=== PATIENT | female | born 1945 | race Caucasian/White ===

== ENCOUNTER 2017-02-04 15:58 | Inpatient (IN) | payer OTHER, MEDICARE ==
[2017-02-04] VITALS (8 sets, daily range): BP systolic 69–171; BP diastolic 55–78; PULSE 64–72; RESP 18–22; TEMP 97.8–98; O2SAT 96–99
[~2017-02-04 15:58] MED LIST: ALPR2TAB3 PO; BENI40TA30 PO; BYST2.5T2 PO; DILT120C9 PO; DILTSR120 PO; LAMO25TA PO; LASI20TA PO; LEVO125T3 PO; LEXA20TA PO; MAXZ PO; MORP15IN3 INTRA1; NEUR100C PO; NORT10CA PO; NORT75CA PO; OMEP20TA39 PO; POTA-267 PO; PROM25TA5 PO; PYRI50TA PO; [UNRECOGNIZED DRUG - CODE] IV; [UNRECOGNIZED DRUG - CODE] IV
[2017-02-04] MEDS ORDERED: ESCI20TA PO (16:18)
[2017-02-04] MEDS ORDERED: TRIA1TAB5 PO (16:18)
[2017-02-04] MEDS ORDERED: FURO20TA PO (16:18)
[2017-02-04] MEDS ORDERED: DILA2TAB2 PO (16:18)
[2017-02-04] MEDS ORDERED: ALPR0.5T3 PO (16:18)
[2017-02-04] MEDS ORDERED: NORT75CA PO (16:18)
[2017-02-04] MEDS ORDERED: TIZA4TAB PO (16:18)
[2017-02-04] MEDS ORDERED: GABA800T PO (16:18)
[2017-02-04] MEDS ORDERED: LAMO25TA PO (16:18)
[2017-02-04] MEDS ORDERED: OMEP20TA PO (16:18)
[2017-02-04] MEDS ORDERED: METO25TA3 PO (16:18)
[2017-02-04] MEDS ORDERED: DILT120C9 PO (16:18)
[2017-02-04] MEDS ORDERED: PERC10TA27 PO (16:18)
[2017-02-04] MEDS ORDERED: LEVO112T2 PO (16:18)
[2017-02-04] MEDS ORDERED: POTA10CA PO (16:18)
[2017-02-04 16:28] LABS: AUTOMATED NEUTROPHIL # 6.6 TH/MM3 (1.8-7.7); BASOPHIL % 0.5 % (0.0-2.0); EOSINOPHIL # 0.1 TH/MM3 (0-0.4); EOSINOPHIL % 0.7 % (0.0-4.0); HEMATOCRIT 40.9 % (35.0-46.0); LYMPH % 20.6 % (9.0-44.0); LYMPHOCYTE # 1.9 TH/MM3 (1.0-4.8); MEAN CELL VOLUME 71.5 FL (80.0-100.0); MEAN CORPUSCULAR HEMOGLOBIN 22.3 PG (27.0-34.0); MEAN CORPUSCULAR HGB CONC 31.2 % (32.0-36.0); MONO % 8.1 % (0.0-8.0); NEUT % 70.1 % (16.0-70.0); PLATELET COUNT 219 TH/MM3 (150-450); RED BLOOD COUNT 5.71 MIL/MM3 (4.00-5.30); RED CELL DISTRIBUTION WIDTH 16.6 % (11.6-17.2); WHITE BLOOD COUNT 9.4 TH/MM3 (4.0-11.0)
[2017-02-04 16:32] LABS: HEMO FLAGS AUTO DIFF
--- NOTE | 2017-02-04 16:49 | RADHPO ---
EXAM DATE/TIME: 02/04/2017 16:33 [place] COMPARISON: CT ABDOMEN & PELVIS W CONTRAST, February 28, 2014, 14:26. CHEST SINGLE AP, February 28, 2014, 13:15. INDICATIONS : Chest discomfort, irregular heart rate starting today MEDICAL HISTORY : None. SURGICAL HISTORY : None. ENCOUNTER: Initial ACUITY: 1 day PAIN SCORE: 0/10 LOCATION: Bilateral chest FINDINGS: There is slight scarring or atelectasis at the lateral left base which appears similar to prior. Lung s otherwise clear. No effusion suspected. Cardiomediastinal contours are stable and satisfactory for technique and projection. CONCLUSION: Minimal parenchymal opacity at the lateral left lung base. Dany Leyva MD on February 04, 2017 at 16:47 Board Certified Radiologist. This report was verified electronically.
[2017-02-04 16:53] LABS: ALKALINE PHOSPHATASE 171 U/L (45-117); ALT (GPT) 35 U/L (10-53); ANION GAP 14 MEQ/L (5-15); AST (GOT) 30 U/L (15-37); BICARBONATE 31.2 MEQ/L (21.0-32.0); BLOOD UREA NITROGEN 22 MG/DL (7-18); CHLORIDE 90 MEQ/L (98-107); CREATINE KINASE 236 U/L (26-192); GLOMERULAR FILTRATION RATE 49 ML/MIN (>89); MAGNESIUM 2.4 MG/DL (1.5-2.5); SODIUM (NA) 135 MEQ/L (136-145); TOTAL BILIRUBIN ADULT 0.5 MG/DL (0.2-1.0)
[2017-02-04 16:55] LABS: POTASSIUM 2.3 MEQ/L (3.5-5.1)
[2017-02-04] MEDS ORDERED: POTASSIUM CHLORIDE 25 MEQ EFFERVESCENT TAB PO ONE (17:00)
[2017-02-04 17:05] LABS: OVALOCYTES 1+ (NORMAL); SCAN/DIFF AUTO DIFF CONFIRMED
[2017-02-04 17:14] LABS: CKMB 2.6 NG/ML (0.5-3.6)
[2017-02-04] MEDS ORDERED: POTASSIUM CHLOR 10 MEQ PREMIX 100 ML IV ONE (17:15)
[2017-02-04] MEDS ORDERED: POTASSIUM PHOSPHATE MONOBASIC 500 MG TAB PO ONE (17:15)
--- NOTE | 2017-02-04 17:22 | PD ---
HPI Chief Complaint: Respiratory Symptoms Time Seen by Provider: 16:09 Travel History International Travel<30 days: No Contact w/Intl Traveler<30days: No Traveled to known affect area: No History of Present Illness HPI 71-year-old female presents with palpitations, general ill feeling, and diarrhea over the past couple of days. She states that she is concerned that she is withdrawing from her narcotics that she's been trying to cut her Percocet back. She states that she went to her cotton machine operator Dr. mckeon and he did echocardiogram that showed no significant findings other than what he follows her with with her mitral prolapse. She states she went to her pain management doctor today and they told her she could take a Percocet to see if that helped her but to come here if her symptoms were worse. She states that she's had this off and on for the past couple days and it is getting worse where she feels like she is about to pass out. Quality is palpitations. Severity is feeling like they are getting worse per patient. She denies specific modifying factors other than movement. PFSH Past Medical History Arthritis: Yes Asthma: No Autoimmune Disease: No Anxiety: No Depression: Yes (bipolar) Heart Rhythm Problems: No Cancer: No Cardiovascular Problems: Yes (MVP) High Cholesterol: Yes Chest Pain: No Congestive Heart Failure: No COPD: No Cerebrovascular Accident: No Diabetes: Yes (TYPE 2 diet controlled) Patient Takes Glucophage: No Diminished Hearing: No Endocrine: No Gastrointestinal Disorders: Yes GERD: No Genitourinary: No Headaches: No Hepatitis: No Hiatal Hernia: Yes (REPAIRED WITH SURGERY) Hypertension: Yes Immune Disorder: No Implanted Vascular Access Dvce: No Kidney Stones: No Medical other: Yes (arthritis back and neck problems) Musculoskeletal: Yes Neurologic: No Psychiatric: Yes (BIPOLAR DISORDER) Reproductive: No Respiratory: No Immunizations Current: Yes Migraines: No Renal Failure: No Seizures: No Sleep Apnea: Yes (SLIGHT) Thyroid Disease: Yes (hypo) Ulcer: No PNEUMOCCOCAL Vaccine (Year): 1 Menopausal: Yes Past Surgical History Abdominal Surgery: Yes (GASTRIC BANDING, EXP LAP, REPAIR HIATAL HERNIA) Appendectomy: Yes Cardiac Surgery: No Cholecystectomy: Yes Ear Surgery: No Endocrine Surgery: No Eye Surgery: No Genitourinary Surgery: No Gynecologic Surgery: Yes (HYSTERECTOMY) Hysterectomy: Yes (COMPLETE) Oral Surgery: No Thoracic Surgery: No Other Surgery: Yes (INTRATHECIAL PAIN PUMP TO RT ABD AREA) Social History Alcohol Use: No Tobacco Use: No (QUIT 30+YRS AGO SMOKED CIGS FOR 2 YRS ) Substance Use: No Allergies-Medications (Allergen,Severity, Reaction): Coded Allergies: Codeine (Verified Allergy, Severe, Psychosis, 02/04/17) Erythromycin (Verified Allergy, Severe, VOMITING/RASH, 02/04/17) Sulfa (Verified Allergy, Severe, 02/04/17) n/v Morphine (Verified Allergy, Intermediate, RASH, 02/04/17) PT STATES DOES NOT HAVE AN ALLERGY TO MORPHINE, HAS TAKEN BEFORE, "MAKES HER ITCH", BUT HAS HAD MULTIPLE TIMES BEFORE WITH NO ALLERGY Reported Meds & Prescriptions Reported Meds & Active Scripts Active Reported Percocet (Oxycodone-Acetaminophen) 10-325 mg Tab 1 Tab PO Q4H PRN Dilaudid (Hydromorphone HCl) 2 Mg Tab Unknown Dose PO Q4H PRN Tizanidine (Tizanidine HCl) 4 Mg Tab 4 Mg PO HS Alprazolam 0.5 Mg Tab 0.5 Mg PO HS Lamotrigine 25 Mg Tab 50 Mg PO DAILY Escitalopram (Escitalopram Oxalate) 20 Mg Tab 20 Mg PO DAILY Nortriptyline (Nortriptyline HCl) 75 Mg Cap 160 Mg PO HS Diltiazem ER 12 HR (Diltiazem HCl) 120 Mg Caper 120 Mg PO BID Omeprazole 20 Mg Tab 20 Mg PO DAILY Potassium Chloride ER (Potassium Chloride) 10 Meq Cap 10 Meq PO DAILY Levothyroxine (Levothyroxine Sodium) 112 Mcg Tab 112 Mcg PO DAILY Gabapentin 800 Mg Tab 800 Mg PO BID Triamterene-Hydrochlorothiazide 75-50 Mg Tab 1 Tab PO DAILY Metoprolol Tartrate 25 Mg Tab 25 Mg PO BID Furosemide 20 Mg Tab 20 Mg PO DAILY Review of Systems Except as stated in HPI: all other systems reviewed are Neg Physical Exam Narrative GENERAL: Well-nourished, well-developed patient. SKIN: Warm and dry. HEAD: Normocephalic and atraumatic. EYES: No injection or drainage. ENT: No nasal drainage noted. NECK: Supple, trachea midline. CARDIOVASCULAR: Regular rate and rhythm RESPIRATORY: Breath sounds equal bilaterally at apices. No accessory muscle use. GASTROINTESTINAL: Abdomen soft, non-tender, nondistended. NEUROLOGICAL: Awake and alert. Moves all extremities. Normal speech. Data Data Last Documented VS Vital Signs Date Time Temp Pulse Resp B/P Pulse Ox O2 Delivery O2 Flow Rate FiO2 02/04/17 17:14 66 18 171/72 97 Room Air 02/04/17 16:46 97.8 Orders Magnesium (Mg) (02/04/17 16:10) Phosphorus (Po4) (02/04/17 16:10) Complete Blood Count With Diff (02/04/17 16:10) Comprehensive Metabolic Panel (02/04/17 16:10) Ckmb (Isoenzyme) Profile (02/04/17 16:10) Troponin I (02/04/17 16:10) B-Type Natriuretic Peptide (02/04/17 16:10) Chest, Single Ap (02/04/17 ) Electrocardiogram (02/04/17 ) Iv Access Insert/Monitor (02/04/17 16:10) Ecg Monitoring (02/04/17 16:10) Oximetry (02/04/17 16:10) CKMB (02/04/17 16:19) CKMB% (02/04/17 16:19) Potassium Chloride Eff (K-Lyte Cl Eff) (02/04/17 17:00) Potassium Phosphate (K-Phos) (02/04/17 17:15) Potassium Chlor 10 Meq Premix (Kcl 10 Me (02/04/17 17:15) Admit Order (Ed Use Only) (02/04/17 17:29) Labs Laboratory Tests Test 02/04/17 16:19 White Blood Count 9.4 TH/MM3 Red Blood Count 5.71 MIL/MM3 Hemoglobin 12.7 GM/DL Hematocrit 40.9 % Mean Corpuscular Volume 71.5 FL Mean Corpuscular Hemoglobin 22.3 PG Mean Corpuscular Hemoglobin 31.2 % Concent Red Cell Distribution Width 16.6 % Platelet Count 219 TH/MM3 Mean Platelet Volume 9.6 FL Neutrophils (%) (Auto) 70.1 % Lymphocytes (%) (Auto) 20.6 % Monocytes (%) (Auto) 8.1 % Eosinophils (%) (Auto) 0.7 % Basophils (%) (Auto) 0.5 % Neutrophils # (Auto) 6.6 TH/MM3 Lymphocytes # (Auto) 1.9 TH/MM3 Monocytes # (Auto) 0.8 TH/MM3 Eosinophils # (Auto) 0.1 TH/MM3 Basophils # (Auto) 0.0 TH/MM3 CBC Comment AUTO DIFF Differential Comment AUTO DIFF CONFIRMED Ovalocytes 1+ Sodium Level 135 MEQ/L Potassium Level 2.3 MEQ/L Chloride Level 90 MEQ/L Carbon Dioxide Level 31.2 MEQ/L Anion Gap 14 MEQ/L Blood Urea Nitrogen 22 MG/DL Creatinine 1.10 MG/DL Estimat Glomerular Filtration 49 ML/MIN Rate Random Glucose 114 MG/DL Calcium Level 9.6 MG/DL Phosphorus Level 1.5 MG/DL Magnesium Level 2.4 MG/DL Total Bilirubin 0.5 MG/DL Aspartate Amino Transf 30 U/L (AST/SGOT) Alanine Aminotransferase 35 U/L (ALT/SGPT) Alkaline Phosphatase 171 U/L Total Creatine Kinase 236 U/L Creatine Kinase MB 2.6 NG/ML Creatine Kinase MB % 1.1 % Troponin I LESS THAN 0.02 NG/ML B-Type Natriuretic Peptide 40 PG/ML Total Protein 8.6 GM/DL Albumin 4.2 GM/DL MDM Medical Decision Making Medical Screen Exam Complete: Yes Emergency Medical Condition: Yes Medical Record Reviewed: Yes (past history confirmed) Interpretation(s) EKG shows sinus rhythm at 70 with bigeminy PVCs last from 2010 CBC & BMP Diagram 02/04/17 16:19 Last 24 hours Impressions Chest X-Ray 02/04/17 0000 Signed Impressions: Service Date/Time: Saturday, February 04, 2017 16:33 - CONCLUSION: Minimal parenchymal opacity at the lateral left lung base. Dany Leyva MD Chest x-ray is stable Phosphorus is low Differential Diagnosis Electrolyte abnormality, anemia, medication effect, renal failure, CHF Narrative Course Will check blood work, chest x-ray, EKG and reevaluate. Patient has bigeminy but vitals are stable this is likely electrolyte related Chemistries confirm low potassium and phosphorus. These are both been replaced. Patient no longer is in bigeminy. She'll need to be admitted to the hospital for further care. Patient updated and agrees to plan of care. Physician Communication Physician Communication dr martinez requests call to dr mckeon to make sure can stay here in [place] dr martinez states can stay here with consult to his cotton machine operator in the am Diagnosis Primary Impression: Hypokalemia Additional Impressions: Bigeminy Hypophosphatemia Admitting Information Admitting Physician Requests: Admit Karina Kendall MD Feb 04, 2017 17:22
[2017-02-04] MEDS ORDERED: SODIUM CHLORID 0.9% 500 ML INJ 500 ML IV ONE (18:00)
[2017-02-04] MEDS ORDERED: oxyCODONE/ACETAMINOPHEN 10 MG/325 MG TAB PO PRN (18:15)
[2017-02-04] MEDS ORDERED: POTASSIUM PHOSPHATE INJ 30 MMOL in SODIUM CHLOR 0.9% 250 ML INJ 250 ML IV ONE (18:15)
--- NOTE | 2017-02-04 18:20 | HHI.HP ---
[facility] Primary [facility] Physician Taylor Navarrete MD Admission Diagnosis hypokalemia, bigemeny Diagnoses: Chief Complaint: Palpitation, lightheaded, weakness, diarrhea Travel History International Travel<30 Days: No Contact w/Intl Traveler <30 Da: No Traveled to Known Affected Are: No History of Present Illness 71 years old female who has a history of hypertension hyperlipidemia bipolar disorder, type 2 diabetes mellitus, history of right hip replacement complicated with infection, patient has narcotic pumps that has been gradually weaned of also she is on Percocet that she said she was trying to wean it off as well. Came to the ER complaining of fatigue and weakness, and palpitation that she's been feeling for a while, patient was at Dr. Pritchett her kettle tender 2 days ago for that problem and she had 2-D echo, today her symptoms got worse patient thought due to her tapering her Percocet dose so she took extra Percocet 10 mg but without improvement, in ED she was found to have potassium of 2.3, and phosphorus of 1.5 and she was in bigeminy on telemetry. She denied chest pain, abdominal pain, but the patient admitted having 3 days of diarrhea which she admitted also being due to excessive MiraLAX she's been taking. Review of Systems All 10 systems reviewed and was positive for what is mentioned in history of present illness otherwise negative Past Family Social History Past Medical History Arthritis: Yes Asthma: No Autoimmune Disease: No Anxiety: No Depression: Yes (bipolar) Heart Rhythm Problems: No Cancer: No Cardiovascular Problems: Yes (MVP) High Cholesterol: Yes Chest Pain: No Congestive Heart Failure: No COPD: No Cerebrovascular Accident: No Diabetes: Yes (TYPE 2 diet controlled) Patient Takes Glucophage: No Diminished Hearing: No Endocrine: No Gastrointestinal Disorders: Yes GERD: No Genitourinary: No Headaches: No Hepatitis: No Hiatal Hernia: Yes (REPAIRED WITH SURGERY) Hypertension: Yes Immune Disorder: No Implanted Vascular Access Dvce: No Kidney Stones: No Medical other: Yes (arthritis back and neck problems) Musculoskeletal: Yes Neurologic: No Psychiatric: Yes (BIPOLAR DISORDER) Reproductive: No Respiratory: No Immunizations Current: Yes Migraines: No Renal Failure: No Seizures: No Sleep Apnea: Yes (SLIGHT) Thyroid Disease: Yes (hypo) Menopausal: Yes Past Surgical History Abdominal Surgery: Yes (GASTRIC BANDING, EXP LAP, REPAIR HIATAL HERNIA) Appendectomy: Yes Cardiac Surgery: No Cholecystectomy: Yes Ear Surgery: No Endocrine Surgery: No Eye Surgery: No Genitourinary Surgery: No Gynecologic Surgery: Yes (HYSTERECTOMY) Hysterectomy: Yes (COMPLETE) Oral Surgery: No Thoracic Surgery: No Other Surgery: Yes (INTRATHECIAL PAIN PUMP TO RT ABD AREA) Allergies: Coded Allergies: Codeine (Verified Allergy, Severe, Psychosis, 02/04/17) Erythromycin (Verified Allergy, Severe, VOMITING/RASH, 02/04/17) Sulfa (Verified Allergy, Severe, 02/04/17) n/v Morphine (Verified Allergy, Intermediate, RASH, 02/04/17) PT STATES DOES NOT HAVE AN ALLERGY TO MORPHINE, HAS TAKEN BEFORE, "MAKES HER ITCH", BUT HAS HAD MULTIPLE TIMES BEFORE WITH NO ALLERGY Family History Father of heart attack at age 85 Social History Quit smoking 30 years ago before that she smoked cigar, no alcohol or illicit drug abuse Physical Exam Vital Signs Vital Signs Date Time Temp Pulse Resp B/P Pulse Ox O2 Delivery O2 Flow Rate FiO2 02/04/17 17:14 66 18 171/72 97 Room Air 02/04/17 16:46 97.8 64 18 140/78 98 Room Air 02/04/17 16:17 99 Room Air 02/04/17 16:14 66 18 167/68 99 Room Air 02/04/17 16:08 98.0 72 22 69/55 98 Physical Exam GENERAL: This is a well-nourished, well-developed patient, in no apparent distress. SKIN: No rashes, warm and dry HEAD: Atraumatic. Normocephalic. EYES: Pupils equal round and reactive. Extraocular motions intact. No scleral icterus. ENT: Nose without bleeding, or drainage, Airway patent. NECK: Trachea midline. Supple CARDIOVASCULAR: Regular rate and rhythm with positive3/6 systolic murmur RESPIRATORY: Fair air entry bilaterally. No wheezes, rales, or rhonchi. GASTROINTESTINAL: Abdomen soft, non-tender, nondistended. Positive bowel sounds MUSCULOSKELETAL: Extremities without clubbing, cyanosis, or edema. Pedal pulses appreciated NEUROLOGICAL: Awake and alert. Moves all extremity. Normal speech.no focal neurological deficit Laboratory Laboratory Tests Test 02/04/17 16:19 White Blood Count 9.4 Red Blood Count 5.71 Hemoglobin 12.7 Hematocrit 40.9 Mean Corpuscular Volume 71.5 Mean Corpuscular Hemoglobin 22.3 Mean Corpuscular Hemoglobin 31.2 Concent Red Cell Distribution Width 16.6 Platelet Count 219 Mean Platelet Volume 9.6 Neutrophils (%) (Auto) 70.1 Lymphocytes (%) (Auto) 20.6 Monocytes (%) (Auto) 8.1 Eosinophils (%) (Auto) 0.7 Basophils (%) (Auto) 0.5 Neutrophils # (Auto) 6.6 Lymphocytes # (Auto) 1.9 Monocytes # (Auto) 0.8 Eosinophils # (Auto) 0.1 Basophils # (Auto) 0.0 CBC Comment AUTO DIFF Differential Comment AUTO DIFF CONFIRMED Ovalocytes 1+ Sodium Level 135 Potassium Level 2.3 Chloride Level 90 Carbon Dioxide Level 31.2 Anion Gap 14 Blood Urea Nitrogen 22 Creatinine 1.10 Estimat Glomerular Filtration 49 Rate Random Glucose 114 Calcium Level 9.6 Phosphorus Level 1.5 Magnesium Level 2.4 Total Bilirubin 0.5 Aspartate Amino Transf 30 (AST/SGOT) Alanine Aminotransferase 35 (ALT/SGPT) Alkaline Phosphatase 171 Total Creatine Kinase 236 Creatine Kinase MB 2.6 Creatine Kinase MB % 1.1 Troponin I LESS THAN 0.02 B-Type Natriuretic Peptide 40 Total Protein 8.6 Albumin 4.2 Result Diagram: 02/04/17 1619 02/04/17 1619 Imaging Last Impressions Chest X-Ray 02/04/17 0000 Signed Impressions: Service Date/Time: Saturday, February 04, 2017 16:33 - CONCLUSION: Minimal parenchymal opacity at the lateral left lung base. Dany Leyva MD Assessment and Plan Assessment and Plan 71 years old female came with palpitation lightheaded and weakness Severe hypokalemia mostly due to laxative -induced diarrhea Bigeminy mostly due to hypokalemia, improved back to sinus rhythm after starting potassium History of chronic pain on morphine pump Electrolyte imbalance hyponatremia hypophosphatemia SARAH see due to dehydration Mild rhabdomyolysis mostly due to dehydration Increased alkaline phosphatase, repeat level in a.m. Chest x-ray finding with minimal parenchymal opacity left lower lung: No clinical sign of pneumonia and no leukocytosis no fever History of bipolar hypertension arthritis: We'll continue home med rec Plan: Admit for observation with telemetry Iv fluid normal saline Potassium phosphate replacement Keep under telemetry Consider cardiology consultation, ED talked to Dr. Ac Continue home med rec SCD and heparin for DVT prophylaxis Obtain records from Dr. Pritchett office Avoid nephrotoxins, monitor BMP Monitor CK Discussed Condition With Patient in ED physician Shirley Portillo MD Feb 04, 2017 18:20
[2017-02-04] MEDS ORDERED: SODIUM CHLORIDE 0.9% FLUSH 10 ML FLUSH IV FLUSH PRN (18:30)
[2017-02-04] MEDS ORDERED: ONDANSETRON HCL 4 MG/2 ML VIAL IVP PRN (18:30)
[2017-02-04] MEDS ORDERED: NALOXONE HCL 0.4 MG/ML AMP IV PRN (18:30)
[2017-02-04] MEDS ORDERED: ACETAMINOPHEN 325 MG TAB PO PRN (18:30)
[2017-02-04 19:21] LABS: CREATINE KINASE 212 U/L (26-192)
[2017-02-04 19:33] LABS: CKMB 1.8 NG/ML (0.5-3.6)
[2017-02-04] MEDS: SODIUM CHLOR 0.9% 1000 ML INJ 1,000 ML IV SCH (19:50)
[2017-02-04] MEDS: SODIUM CHLORIDE 0.9% FLUSH 10 ML FLUSH IV FLUSH SCH (21:00)
[2017-02-04] MEDS: GABAPENTIN 400 MG CAP PO SCH (21:22)
[2017-02-04] MEDS: HEPARIN SODIUM - SQ 10,000 UNITS/ML VIAL SQ SCH (21:23)
[2017-02-04] MEDS: ALPRAZolam 0.5 MG TAB PO SCH (21:23)
[2017-02-05] VITALS (9 sets, daily range): BP systolic 137–183; BP diastolic 58–78; PULSE 56–78; RESP 14–20; TEMP 97–98.1; O2SAT 94–97
[2017-02-05 00:24] LABS: CREATINE KINASE 168 U/L (26-192)
[2017-02-05] MEDS: POTASSIUM CHLOR 20 MEQ PREMIX 100 ML IV SCH ×2 (02:53→05:19)
[2017-02-05] MEDS: SODIUM CHLOR 0.9% 1000 ML INJ 1,000 ML IV SCH (05:18)
[2017-02-05] MEDS: HEPARIN SODIUM - SQ 10,000 UNITS/ML VIAL SQ SCH ×3 (05:28→22:22)
[2017-02-05] MEDS: LEVOTHYROXINE SODIUM 112 MCG TAB PO SCH (05:28)
[2017-02-05 05:39] LABS: AUTOMATED NEUTROPHIL # 4.4 TH/MM3 (1.8-7.7); BASOPHIL % 0.7 % (0.0-2.0); EOSINOPHIL # 0.1 TH/MM3 (0-0.4); EOSINOPHIL % 1.7 % (0.0-4.0); HEMATOCRIT 34.2 % (35.0-46.0); LYMPHOCYTE # 1.7 TH/MM3 (1.0-4.8); MEAN CELL VOLUME 70.2 FL (80.0-100.0); MEAN CORPUSCULAR HEMOGLOBIN 22.3 PG (27.0-34.0); MEAN CORPUSCULAR HGB CONC 31.7 % (32.0-36.0); MONO % 7.8 % (0.0-8.0); NEUT % 63.8 % (16.0-70.0); PLATELET COUNT 186 TH/MM3 (150-450); RED BLOOD COUNT 4.86 MIL/MM3 (4.00-5.30); RED CELL DISTRIBUTION WIDTH 15.8 % (11.6-17.2); WHITE BLOOD COUNT 6.7 TH/MM3 (4.0-11.0)
[2017-02-05 05:40] LABS: HEMO FLAGS AUTO DIFF
[2017-02-05 05:54] LABS: PLATELET ESTIMATE SMEAR NORMAL (NORMAL); PLATELET MORPHOLOGY NORMAL (NORMAL); SCAN/DIFF AUTO DIFF CONFIRMED
[2017-02-05 06:28] LABS: BICARBONATE 31.2 MEQ/L (21.0-32.0); MAGNESIUM 2.3 MG/DL (1.5-2.5)
[2017-02-05] MEDS: SODIUM CHLORIDE 0.9% FLUSH 10 ML FLUSH IV FLUSH SCH ×2 (08:55→21:00)
[2017-02-05] MEDS ORDERED: POTASSIUM CHLORIDE 10 MEQ CONTROLLED RELEASE TAB PO ONE (09:00)
[2017-02-05] MEDS ORDERED: TRIAMTERENE/HCTZ 75 MG/50 MG TAB PO SCH (09:00)
[2017-02-05] MEDS ORDERED: POTASSIUM CHLORIDE 25 MEQ EFFERVESCENT TAB NG SCH (09:00)
[2017-02-05] MEDS: DILTIAZEM-CD 240 MG CAP ER PO SCH (09:50)
[2017-02-05] MEDS: lamoTRIgine 25 MG TAB PO SCH (09:51)
[2017-02-05] MEDS: GABAPENTIN 400 MG CAP PO SCH ×2 (09:51→22:22)
[2017-02-05] MEDS: ESCITALOPRAM OXALATE 20 MG TAB PO SCH (09:51)
[2017-02-05] MEDS ORDERED: ALPRAZolam 0.5 MG TAB PO PRN (10:45)
[2017-02-05] MEDS: NS + KCL 20 MEQ INJ 1,000 ML IV SCH ×2 (11:01→22:25)
[2017-02-05] MEDS: METOPROLOL TARTRATE 25 MG TAB PO SCH ×2 (11:10→22:21)
--- NOTE | 2017-02-05 11:15 | HHI.PR ---
Subjective Remarks Patient with palpitations, lightheadedness or weakness and hypokalemia. Patient states she's had several episodes of loose nonbloody stools this morning. She denies any complaints of vomiting or abdominal pain but does state that she is nauseous. Patient states she is very anxious and is requesting Xanax which she normally takes at night only when needed. She is concerned she may be having narcotic withdrawal. Objective Vitals Vital Signs Date Time Temp Pulse Resp B/P Pulse Ox O2 Delivery O2 Flow Rate FiO2 02/05/17 10:18 97.7 78 14 152/78 96 02/05/17 07:42 97.8 73 16 162/61 96 Room Air 02/05/17 07:40 16 96 Room Air 02/05/17 04:47 69 18 97 Room Air 02/05/17 04:47 69 18 172/58 97 Room Air 02/05/17 02:21 58 18 95 Room Air 02/05/17 02:21 58 18 137/66 95 Room Air 02/05/17 00:10 57 18 96 Room Air 02/05/17 00:10 57 18 140/62 96 Room Air 02/04/17 22:10 69 18 127/68 96 Room Air 02/04/17 22:10 69 18 96 Room Air 02/04/17 19:21 67 18 154/70 99 Room Air 02/04/17 19:21 68 18 99 Room Air 02/04/17 18:30 97 Room Air 02/04/17 17:14 66 18 171/72 97 Room Air 02/04/17 16:46 97.8 64 18 140/78 98 Room Air 02/04/17 16:17 99 Room Air 02/04/17 16:14 66 18 167/68 99 Room Air 02/04/17 16:08 98.0 72 22 69/55 98 I/O 02/04/17 02/04/17 02/04/17 02/05/17 02/05/17 02/05/17 07:00 15:00 23:00 07:00 15:00 23:00 Intake Total 600 ml 1350 ml Balance 600 ml 1350 ml Intake IV Total 600 ml 1350 ml Result Diagram: 02/05/17 0525 02/05/17 0525 Imaging Last 48 hours Impressions Chest X-Ray 02/04/17 0000 Signed Impressions: Service Date/Time: Saturday, February 04, 2017 16:33 - CONCLUSION: Minimal parenchymal opacity at the lateral left lung base. Dany eLyva MD Objective Remarks GENERAL: This is a well-nourished, well-developed patient, in no apparent distress. A&Ox3. Pleasant and cooperative. SKIN: No rashes, warm and dry HEAD: Atraumatic. Normocephalic. EYES: Pupils equal round and reactive. Extraocular motions intact. CARDIOVASCULAR: Regular rate and rhythm with positive 3/6 systolic murmur. RESPIRATORY: Fair air entry bilaterally. No wheezes, rales, or rhonchi. GASTROINTESTINAL: Abdomen soft, non-tender, nondistended. Positive bowel sounds. MUSCULOSKELETAL: Extremities without clubbing, cyanosis, or edema. Pedal pulses appreciated NEUROLOGICAL: Awake and alert. Moves all extremities. Normal speech. No focal neurological deficit Medications and IVs Current Medications Medications (Trade) Dose Ordered Sig/Lin Route Start Time Stop Time Status Last Admin (Xanax) 0.5 mg HS PO 02/04/17 21:00 02/04/17 21:23 (Lexapro) 20 mg DAILY PO 02/05/17 09:00 02/05/17 09:51 (Neurontin) 800 mg BID PO 02/04/17 21:00 02/05/17 09:51 (LaMICtal) 50 mg DAILY PO 02/05/17 09:00 02/05/17 09:51 (Synthroid) 112 mcg DAILY@0600 PO 02/05/17 06:00 02/05/17 05:28 (Percocet 10-325 Mg) 1 tab Q4H PRN PO 02/04/17 18:15 (Maxzide 75-50 Mg) 1 tab DAILY PO 02/05/17 09:00 Hold (Cardizem Cd) 240 mg DAILY PO 02/05/17 09:00 02/05/17 09:50 (NS Flush) 2 ml UNSCH PRN IV FLUSH 02/04/17 18:30 (NS Flush) 2 ml BID IV FLUSH 02/04/17 21:00 02/04/17 21:00 (Tylenol) 650 mg Q4H PRN PO 02/04/17 18:30 (Zofran Inj) 4 mg Q6H PRN IVP 02/04/17 18:30 (Heparin Inj) 5,000 units Q8HR SQ 02/04/17 22:00 02/05/17 05:28 Naloxone HCl 0.4 mg 0.4 mg UNSCH PRN IV 02/04/17 18:30 (NS + KCl 20 Meq Inj) 1,000 ml @ 84 mls/hr [id number] IV 02/05/17 11:00 (Xanax) 0.5 mg Q8H PRN PO 02/05/17 10:45 (Lopressor) 25 mg BID PO 02/05/17 11:00 (Pamelor) 160 mg HS PO 02/05/17 21:00 UNV (Protonix) 20 mg DAILY PO 02/06/17 09:00 A/P Assessment and Plan 71 years old female came with palpitation, lightheaded, weakness found to have significant hypokalemia and hypophosphatemia. Severe hypokalemia mostly due to laxative-induced diarrhea with ongoing episodes of diarrhea today - Potassium today improved to 3.0 will continue with by mouth repletion and monitor closely - Continue IV fluids, add potassium - Monitor electrolytes - Will consider checking for C. 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 Chest x-ray finding with minimal parenchymal opacity left lower lung - No clinical sign of pneumonia and no leukocytosis no fever Hypothyroidism - Continue home levothyroxine History of bipolar - Resume home meds Anxiety - Xanax when necessary DVT prophylaxis - SCD and heparin Written by Karen Herring PA-C acting as scribe for Dr. Burton on 02/05/17 at 10:43. All or portions of this note were transcribed by scribe Karen Waubay, PA-C. I, Dr. Haresh Burton personally performed the history, physical exam, and medical decision making; and confirmed the accuracy of the information in the transcribed note. Authenticated by Dr. Haresh Burton on 02/05/17 at 14:14. Karen Herring Feb 05, 2017 11:14 Haresh Burton MD Feb 05, 2017 14:14
--- NOTE | 2017-02-05 13:58 | EKG ---
Date Performed: 02/04/2017 Time Performed: 16:05:20 PTAGE: 71 years EKG: Sinus rhythm with bigeminal PVCs Prolonged QT interval Inferior infarct - age undetermined QRS changes V3/V4 may be due to LVH but cannot rule out anterior infarct Left ventricular hypertrophy Lateral ST-T changes may be due to hypertrophy and/or ischemia Compared to previous tracing bigeminal PVCs and ST changes are new, consider ischemia.Clinical correlation is recommended. Abnormal ECG PREVIOUS TRACING : 10/26/2011 08.03 DOCTOR: Raghav Lopez Interpretating Date/Time 02/05/2017 13:57:45
[2017-02-05] MEDS ORDERED: NORTRIPTYLINE HCL 10 MG CAP PO SCH (21:00)
[2017-02-05] MEDS ORDERED: NORTRIPTYLINE HCL 25 MG CAP PO SCH (21:00)
[2017-02-05] MEDS: ALPRAZolam 0.5 MG TAB PO SCH (22:20)
[2017-02-06] VITALS: BP 178/78; PULSE 55; RESP 20; TEMP 98.1; O2SAT 97
[2017-02-06] MEDS ORDERED: ENALAPRILAT 1.25 MG/ML VIAL IV PRN (00:45)
[2017-02-06 04:00] VITALS: BP 152/73; PULSE 60; RESP 20; TEMP 96.8; O2SAT 96
[2017-02-06] MEDS: LEVOTHYROXINE SODIUM 112 MCG TAB PO SCH (05:25)
[2017-02-06] MEDS: HEPARIN SODIUM - SQ 10,000 UNITS/ML VIAL SQ SCH (05:25)
--- NOTE | 2017-02-06 05:46 | MB ---
cc: EARNEST MADRID DO DATE OF CONSULTATION February 05, 2017 REASON FOR CONSULTATION Bigeminy. HISTORY OF PRESENT ILLNESS Roxy Daley is a pleasant 71-year-old who presents to [facility] complaining of fatigue and weakness as well as palpitations. She states that she has been feeling this for sometime and saw Dr. Pritchett two days ago and had an echo at that time. It appears that her symptoms got worse and she thought this was due to tapering her Percocet dose, so she took an extra Percocet 10 mg without improvement. On arrival to the emergency room she was found to have a potassium of 2.5 and phosphorus of 1.5 and was found to be in bigeminy on telemetry. Top me she stated that she had diarrhea once entering the hospital but to the admitting physician she states that she has been taking an excessive amount MiraLax and had diarrhea for three days. She denies chest pain, shortness of breath or abdominal pain. PAST MEDICAL HISTORY 1. Anxiety/depression 2. Arthritis. 3. History of mitral valve prolapse. 4. Hyperlipidemia. 5. Type 2 diabetes mellitus. 6. Chronic pain. 7. Hypertension. 8. Bipolar disorder. 9. Hypothyroidism. PAST SURGICAL HISTORY 1. Gastric banding. 2. Repair hiatal hernia. 3. Appendectomy. 4. Cholecystectomy. 5. Hysterectomy. 6. Intrathecal pain pump to right abdominal area. ALLERGIES CODEINE. ERYTHROMYCIN. MORPHINE. SULFA DRUGS. MEDICATIONS 1. Gabapentin 800 mg b.i.d. 2. Lamotrigine 50 mg daily. 3. Escitalopram 20 mg daily. 4. Nortriptyline 160 mg every night. 5. Xanax 0.5 mg every night. 6. Metoprolol tartrate 25 mg b.i.d. 7. Cardizem ER 120 mg b.i.d. 8. Tizanidine 4 mg every night. 9. Lasix 20 mg daily. 10. Dilaudid. 11. Percocet 10/325 one every 4 hours as needed for pain. 12. Triamterene/hydrochlorothiazide 75/50 daily. 13. Omeprazole 20 mg daily. 14. Potassium 10 mEq daily. 15. Synthroid 112 mcg daily. FAMILY HISTORY Father of a heart attack at the age of 85. Denies premature coronary artery disease or sudden cardiac within the family. SOCIAL HISTORY Quit smoking 30 years ago. Denies alcohol or drug abuse. REVIEW OF SYSTEMS Fourteen systems were reviewed including osteopathic pertinent positives and negatives above, otherwise negative. PHYSICAL EXAMINATION VITAL SIGNS: Temperature 97.0, heart rate 65, blood pressure 139/70, respirations 16, pulse ox 95% on room air. IN GENERAL: The patient appears well, in no acute distress, alert, awake and oriented x 3. Extraocular muscles intact. Mucous membranes moist. NECK: Supple. No JVD at 45 degrees. No carotid bruits heard bilaterally. Carotid upstroke is brisk in nature. HEART: Regular rate and rhythm. Positive first and second heart sounds with a 1/6 holosystolic murmur noted at the apex. LUNGS: Clear to auscultation bilaterally. No wheezes, rales or rhonchi. ABDOMEN: Soft, nontender, nondistended. No organomegaly noted. Intrathecal pump noted in the right abdominal wall. EXTREMITIES: Trace edema bilaterally. Femoral and distal pulses intact bilaterally. SKIN: Warm, dry and intact. NEUROLOGICALLY: No focal deficits. OSTEOPATHIC EXAM: Mild lordosis. No kyphoscoliosis or paraspinal tender points. LABORATORY WORK Hemoglobin 10.8, hematocrit 34.2, platelets 186. Potassium 3.3, BUN 15, creatinine 0.7, magnesium 2.3. Troponin negative x 3. ELECTROCARDIOGRAM (February 04, 2017 at 16:05) Sinus rhythm with underlying bigeminy, prolonged QT interval, possible LVH by voltage criteria, nonspecific ST-T wave changes. ECHOCARDIOGRAM (January 27, 2017 from the office) Ejection fraction 60%, mild concentric LVH, moderate aortic stenosis (peak gradient 48, mean gradient 28), mild aortic insufficiency, mild mitral regurgitation, mild tricuspid regurgitation. IMPRESSIONS 1. Severe hypokalemia secondary to diarrhea. 1. Diarrhea most likely due to laxative-induced. 1. Bigeminy due to hypokalemia which has since resolved with increase in her potassium level. 2. History of chronic pain on morphine pump. 3. Acute kidney injury secondary to dehydration. 4. History of bipolar. 5. History of hypertension. 6. Recent echocardiogram showing normal ejection fraction, moderate aortic stenosis, mild aortic insufficiency, mild mitral regurgitation, mild tricuspid regurgitation. RECOMMENDATIONS 1. Ms. Daley appears to have laxative-induced diarrhea causing her to be severely hypokalemia and hypophosphatemic leading to her bigeminy. Since she has had replacement of these electrolytes, on telemetry she has had no further bigeminy. 2. Recent echo showing normal ejection fraction. 3. No further workup is needed for her bigeminy. 4. Recommend to stop laxatives leading to diarrhea. 5. She can follow up with Dr. Pritchett as previously scheduled. 6. From a cardiovascular standpoint, no further workup is needed. We will see as needed. Please call with questions. Thank you for allowing me to see Roxy Daley. If there are any questions, please do not hesitate to call. Earnest Madrid DO VGP/SSB /9:19 PM /5:31 AM
--- NOTE | 2017-02-06 06:27 | PD.CARD.PN ---
Subjective Subjective Remarks The patient is not wearing her telemetry box. She denies chest pain, palpitations, shortness of breath or definite GI symptoms. Chart reviewed along with outside records. Objective Medications Reviewed Vital Signs / I&O Vital Signs Date Time Temp Pulse Resp B/P Pulse Ox O2 Delivery O2 Flow Rate FiO2 02/06/17 04:00 96.8 60 20 152/73 96 Manual Cuff/Auscultation 02/06/17 00:00 98.1 55 20 178/78 97 Automatic Cuff 02/05/17 22:00 61 02/05/17 20:00 98.1 75 20 183/76 97 02/05/17 18:31 97.6 56 20 142/73 94 02/05/17 14:56 97.0 65 16 139/70 95 02/05/17 10:18 97.7 78 14 152/78 96 02/05/17 07:42 97.8 73 16 162/61 96 Room Air 02/05/17 07:40 16 96 Room Air I/O 02/05/17 02/05/17 02/05/17 02/06/17 02/06/17 02/06/17 07:00 15:00 23:00 07:00 15:00 23:00 Intake Total 1350 ml 1960 ml 480 ml Balance 1350 ml 1960 ml 480 ml Intake Oral 1960 ml 480 ml IV Total 1350 ml # Voids 6 2 # Bowel Movements 3 1 Physical Exam GENERAL: Overweight,well-nourished, well-developed patient in no apparent distress. SKIN: Warm and dry. NECK: JVD normal - less than or equal to 5 cm H20. CARDIOVASCULAR: Regular rate and rhythm without gallops, or rubs. 2/6 mid peaking systolic ejection murmur at the base and apex. RESPIRATORY: Normal breath sounds - equal bilaterally. No accessory muscle use. No wheezes, rales or rubs. PERIPHERY: No cyanosis, or edema. Laboratory Laboratory Tests Test 02/05/17 13:10 Potassium Level 3.3 MEQ/L Assessment and Plan Assessment and Plan Problems: Palpitations with symptomatic PVCs Severe hypokalemia most likely due to the fact that she was on 2 diuretics along with having some diuretic Hypertension Diabetes Hyperlipidemia Chronic pain Hypothyroidism Normal LV function with moderate aortic stenosis Recommendations: The patient should not be on 2 diuretics, particularly without appropriate potassium supplementation. We would certainly want to make sure her potassium is in the normal range and have this followed up with her PCP. I will have her keep her regularly scheduled appointment with myself and we will be available if needed. Segundo Pritchett MD Feb 06, 2017 06:27
[2017-02-06 08:00] VITALS: BP 127/70; PULSE 54; RESP 18; TEMP 97; O2SAT 92
[2017-02-06] MEDS: lamoTRIgine 25 MG TAB PO SCH (08:31)
[2017-02-06] MEDS: ESCITALOPRAM OXALATE 20 MG TAB PO SCH (08:31)
[2017-02-06] MEDS: METOPROLOL TARTRATE 25 MG TAB PO SCH (08:31)
[2017-02-06] MEDS: DILTIAZEM-CD 240 MG CAP ER PO SCH (08:31)
[2017-02-06] MEDS: GABAPENTIN 400 MG CAP PO SCH (08:35)
[2017-02-06] MEDS ORDERED: PANTOPRAZOLE SOD 20 MG DELAYED RELEASE TAB PO SCH (09:00)
[2017-02-06] MEDS: SODIUM CHLORIDE 0.9% FLUSH 10 ML FLUSH IV FLUSH SCH (09:00)
[2017-02-06] MEDS ORDERED: TRIAMTERENE/HCTZ 37.5 MG/25 MG TAB PO SCH (09:00)
[2017-02-06 09:59] LABS: POTASSIUM 3.7 MEQ/L (3.5-5.1)
[2017-02-06 10:04] LABS: BICARBONATE 31.5 MEQ/L (21.0-32.0)
--- NOTE | 2017-02-06 11:05 | HHI.DS ---
Discharge Summary Admission Date Feb 05, 2017 at 11:05 Discharge Date: Feb 06, 2017 Admitting Diagnosis hypokalemia, bigemeny, hypophosphatemia (1) Hypokalemia ICD Code: E87.6 (2) Bigeminy ICD Code: I49.9 (3) Hypophosphatemia ICD Code: E83.39 Procedures None Brief History - From Admission 71 years old female who has a history of hypertension hyperlipidemia bipolar disorder, type 2 diabetes mellitus, history of right hip replacement complicated with infection, patient has narcotic pumps that has been gradually weaned of also she is on Percocet that she said she was trying to wean it off as well. Came to the ER complaining of fatigue and weakness, and palpitation that she's been feeling for a while, patient was at Dr. Pritchett her jewel hole finish opener 2 days ago for that problem and she had 2-D echo, today her symptoms got worse patient thought due to her tapering her Percocet dose so she took extra Percocet 10 mg but without improvement, in ED she was found to have potassium of 2.3, and phosphorus of 1.5 and she was in bigeminy on telemetry. She denied chest pain, abdominal pain, but the patient admitted having 3 days of diarrhea which she admitted also being due to excessive MiraLAX she's been taking. CBC/BMP: 02/05/17 0525 02/06/17 0925 Significant Findings Laboratory Tests Test 02/04/17 02/04/17 02/05/17 02/05/17 16:19 18:45 00:00 05:25 Red Blood Count 5.71 MIL/MM3 (4.00-5.30) Mean Corpuscular Volume 71.5 FL 70.2 FL (80.0-100.0) (80.0-100.0) Mean Corpuscular Hemoglobin 22.3 PG 22.3 PG (27.0-34.0) (27.0-34.0) Mean Corpuscular Hemoglobin 31.2 % 31.7 % Concent (32.0-36.0) (32.0-36.0) Neutrophils (%) (Auto) 70.1 % (16.0-70.0) Monocytes (%) (Auto) 8.1 % (0.0-8.0) Ovalocytes 1+ (NORMAL) Sodium Level 135 MEQ/L (136-145) Potassium Level 2.3 MEQ/L 2.7 MEQ/L 3.0 MEQ/L (3.5-5.1) (3.5-5.1) (3.5-5.1) Chloride Level 90 MEQ/L (98-107) Blood Urea Nitrogen 22 MG/DL (7-18) Creatinine 1.10 MG/DL (0.50-1.00) Estimat Glomerular Filtration 49 ML/MIN (>89) 82 ML/MIN (>89) Rate Random Glucose 114 MG/DL 107 MG/DL (74-106) (74-106) Phosphorus Level 1.5 MG/DL (2.5-4.9) Alkaline Phosphatase 171 U/L (45-117) Total Creatine Kinase 236 U/L 212 U/L (26-192) (26-192) Troponin I LESS THAN 0.02 LESS THAN 0.02 LESS THAN 0.02 NG/ML NG/ML NG/ML (0.02-0.05) (0.02-0.05) (0.02-0.05) Total Protein 8.6 GM/DL (6.4-8.2) Hemoglobin 10.8 GM/DL (11.6-15.3) Hematocrit 34.2 % (35.0-46.0) Calcium Level 8.0 MG/DL (8.5-10.1) Test 02/05/17 13:10 Potassium Level 3.3 MEQ/L (3.5-5.1) Imaging Last 72 hours Impressions Chest X-Ray 02/04/17 0000 Signed Impressions: Service Date/Time: Saturday, February 04, 2017 16:33 - CONCLUSION: Minimal parenchymal opacity at the lateral left lung base. Dany Leyva MD PE at Discharge GENERAL: This is a well-nourished, well-developed patient, in no apparent distress. A&Ox3. Pleasant and cooperative. Lying in hospital bed. SKIN: No rashes, warm and dry HEAD: Atraumatic. Normocephalic. EYES: Pupils equal round and reactive. Extraocular motions intact. CARDIOVASCULAR: Regular rate and rhythm with positive 3/6 systolic murmur. RESPIRATORY: Fair air entry bilaterally. No wheezes, rales, or rhonchi. GASTROINTESTINAL: Abdomen soft, non-tender, nondistended. Positive bowel sounds. MUSCULOSKELETAL: Extremities without clubbing, cyanosis, or edema. Pedal pulses appreciated NEUROLOGICAL: Awake and alert. Moves all extremities. Normal speech. No focal neurological deficit Pt update on day of discharge Patient reports that she feels much improved. No new complaints today. She is looking forward to going home. No chest pain or shortness of breath. No further episodes of bigeminy on telemetry. Diarrhea has resolved. Discussed with jewel hole finish opener and nursing staff. Hospital Course 71-year-old female admitted with severe hypokalemia mostly due to laxative induced diarrhea and bigeminy felt to be due to hypokalemia and hypophosphatemia. Patient placed on telemetry and cardiology consult requested. Treated with IV fluids and replacement of electrolytes. Bigeminy resolved and no further episodes noted on telemetry. Also with some mild rhabdomyolysis mostly due to dehydration which resolved with IV fluids. Patient previously on hydrochlorothiazide and Lasix prior to admission and per cardiology's note she did not require use of two diuretic therapies. Patient improved clinically. Diarrhea resolved. Patient cleared for discharge to home from a cardiac standpoint. Patient was seen and examined on the day of discharge and cleared to be released to home. Pt Condition on Discharge: Stable Discharge Disposition: Discharge Home Discharge Time: > 30 minutes Discharge Instructions DIET: Follow Instructions for: Heart Healthy Diet, Diabetic Diet Activities you can perform: Regular-No Restrictions Follow up Referrals: PCP Follow-up - 2-3 Days Continued Medications: Alprazolam (Alprazolam) 0.5 Mg Tab 0.5 MG PO HS ANXIETY Ref 0 TAB Diltiazem ER 12 HR (Diltiazem ER 12 HR) 120 Mg Caper 120 MG PO BID #60 Ref 0 CAP Escitalopram (Escitalopram) 20 Mg Tab 20 MG PO DAILY #30 Ref 0 TAB Gabapentin (Gabapentin) 800 Mg Tab 800 MG PO BID #90 Ref 0 TAB Hydromorphone (Dilaudid) 2 Mg Tab Unknown Dose PO Q4H PRN Pain Management Ref 0 TAB Lamotrigine (Lamotrigine) 25 Mg Tab 50 MG PO DAILY Control Seizures #30 Ref 0 TAB Levothyroxine (Levothyroxine) 112 Mcg Tab 112 MCG PO DAILY Thyroid #30 Ref 0 TAB Metoprolol Tartrate (Metoprolol Tartrate) 25 Mg Tab 25 MG PO BID #30 Ref 0 TAB Nortriptyline (Nortriptyline) 75 Mg Cap 160 MG PO HS Depression Control #30 Ref 0 CAP Omeprazole (Omeprazole) 20 Mg Tab 20 MG PO DAILY #30 Ref 0 TAB Oxycodone-Acetaminophen (Percocet) 10-325 mg Tab 1 TAB PO Q4H PRN PAIN Ref 0 TAB Tizanidine (Tizanidine) 4 Mg Tab 4 MG PO HS Muscle Spasm Ref 0 TAB Triamterene-Hydrochlorothiazide (Triamterene-Hydrochlorothiazide) 75-50 Mg Tab 1 TAB PO DAILY #30 Ref 0 TAB Discontinued Medications: Furosemide (Furosemide) 20 Mg Tab 20 MG PO DAILY #30 Ref 0 TAB Potassium Chloride ER (Potassium Chloride ER) 10 Meq Cap 10 MEQ PO DAILY Electrolyte Replacement #30 Ref 0 CAP Additional Information Written by Karen Herring PA-C acting as scribe for Dr. Burton on 02/06/17 at 11:04. All or portions of this note were transcribed by scribe Karen Herring PA-C. I, Dr. Haresh Burton personally performed the history, physical exam, and medical decision making; and confirmed the accuracy of the information in the transcribed note. Authenticated by Dr. Haresh Burton on 02/06/17 at 13:13. Karen Herring Feb 06, 2017 11:05 Haresh Burton MD Feb 06, 2017 13:14
--- NOTE | 2017-02-06 11:11 | HHI.DCPOC ---
Discharge Care Plan Diagnosis: (1) Hypokalemia (2) Bigeminy (3) Hypophosphatemia Goals to Promote Your Health * To prevent worsening of your condition and complications * To maintain your health at the optimal level Directions to Meet Your Goals Take your medications as prescribed Please discontinue using Lasix and Potassium Follow your dietary instruction Follow activity as directed Keep your appointments as scheduled Take your immunizations and boosters as scheduled If your symptoms worsen call your PCP, if no PCP go to Urgent Care Center or Emergency Room Smoking is Dangerous to Your Health. Avoid second hand smoke Call the 24-hour hour crisis hotline for domestic abuse at Karen Herring Feb 06, 2017 11:11
== END 2017-02-06 11:43 | disposition home or self-care (01) | DRG 641 ==
LOC: PHED 15:58 → INTOOBSV 17:30 → PHEDA 17:30 → PHEDH 21:30 → PH3B 02-05 08:12 → OBSVTOIN 02-05 11:05
PROVIDERS: ADMIT Family Medicine; ATTEND Family Medicine
DX: E87.6 Hypokalemia (principal); E86.0 Dehydration; N17.9 Acute kidney failure, unspecified; M62.82 Rhabdomyolysis; T47.4X5A Adverse effect of other laxatives, initial encounter; E11.9 Type 2 diabetes mellitus without complications; R00.8 Other abnormalities of heart beat; I34.1 Nonrheumatic mitral (valve) prolapse; I10 Essential (primary) hypertension; E78.5 Hyperlipidemia, unspecified; E87.1 Hypo-osmolality and hyponatremia; R19.7 Diarrhea, unspecified; E03.9 Hypothyroidism, unspecified; G89.29 Other chronic pain; E83.39 Other disorders of phosphorus metabolism; G47.30 Sleep apnea, unspecified; Z96.641 Presence of right artificial hip joint; Z87.891 Personal history of nicotine dependence
CPT/HCPCS: 71010; 80048; 80053; 82550; 82552; 82948; 83735; 83880; 84100; 84132; 84484; 85025; 93005; G0378; J1644; J3480; J7030; J7040; J7050

== ENCOUNTER 2018-03-17 18:41 | Emergency (ER) | payer MEDICARE, OTHER ==
[~2018-03-17] VITALS: Ht 160 cm; Wt 100.0 kg
[~2018-03-17 18:41] MED LIST changes: +ALPR0.5T3 PO; -ALPR2TAB3 PO; -BENI40TA30 PO; -BYST2.5T2 PO; +DILA2TAB4 PO; -DILTSR120 PO; +ESCI20TA PO; +GABA800T PO; -LASI20TA PO; +LEVO112T2 PO; -LEVO125T3 PO; -LEXA20TA PO; -MAXZ PO; +METO25TA3 PO; -MORP15IN3 INTRA1; -NEUR100C PO; -NORT10CA PO; -OMEP20TA39 PO; +OMEP20TA93 PO; +PERC10TA27 PO; -POTA-267 PO; -PROM25TA5 PO; -PYRI50TA PO; +TIZA4TAB PO; +TRIA1TAB5 PO; -[UNRECOGNIZED DRUG - CODE] IV; -[UNRECOGNIZED DRUG - CODE] IV
[2018-03-17 18:45] VITALS: BP 216/92; PULSE 73; RESP 18; TEMP 97.6; O2SAT 98
[2018-03-17] MEDS ORDERED: PAIN PUMP DILAUDID (19:15)
[2018-03-17] MEDS ORDERED: hydrALAZINE HCL 20 MG/ML VIAL IV PUSH ONE (19:45)
[2018-03-17 19:56] LABS: AUTOMATED NEUTROPHIL # 4.8 TH/MM3 (1.8-7.7); BASOPHIL % 0.5 % (0.0-2.0); EOSINOPHIL # 0.2 TH/MM3 (0-0.4); EOSINOPHIL % 3.1 % (0.0-4.0); HEMATOCRIT 34.9 % (35.0-46.0); HEMOGLOBIN 10.7 GM/DL (11.6-15.3); LYMPH % 25.3 % (9.0-44.0); LYMPHOCYTE # 1.8 TH/MM3 (1.0-4.8); MEAN CELL VOLUME 70.5 FL (80.0-100.0); MEAN CORPUSCULAR HEMOGLOBIN 21.5 PG (27.0-34.0); MEAN CORPUSCULAR HGB CONC 30.5 % (32.0-36.0); MEAN PLATELET VOLUME 9.5 FL (7.0-11.0); MONO % 7.2 % (0.0-8.0); MONOCYTE # 0.5 TH/MM3 (0-0.9); NEUT % 63.9 % (16.0-70.0); PLATELET COUNT 240 TH/MM3 (150-450); RED BLOOD COUNT 4.95 MIL/MM3 (4.00-5.30); RED CELL DISTRIBUTION WIDTH 14.6 % (11.6-17.2); WHITE BLOOD COUNT 7.3 TH/MM3 (4.0-11.0)
[2018-03-17 20:02] VITALS: O2SAT 97
--- NOTE | 2018-03-17 20:11 | PD ---
HPI Chief Complaint: Respiratory Symptoms Time Seen by Provider: 19:24 Travel History International Travel<30 days: No Contact w/Intl Traveler<30days: No Traveled to known affect area: No History of Present Illness HPI 73-year-old female complains of shortness of breath and elevated blood pressure. Patient states that she was given prescription for diuretic to treat her hypertension in the past. Patient states that she had abnormality in the electrolytes including sodium potassium and was advised to stop taking diuretic. Patient was given prescription for clonidine recently. Patient has been taking clonidine 4 times a day and then decrease to 3 times a day and today twice a day for the past week. Patient states that she has persistent elevated blood pressure despite taking clonidine. Patient denies any headache. Patient denies any chest pain. Patient states that she has intermittent shortness of breath today. Patient denies abdominal pain. Patient denies any focal weakness or numbness of extremity. Patient has history of type 2 diabetes , hypothyroidism, hyperlipidemia, bipolar disorder. Patient has history of chronic pain and on Dilaudid pain pump. PFSH Past Medical History Hx Anticoagulant Therapy: Yes (BABY ASA DAILY) Arthritis: Yes Asthma: No Autoimmune Disease: No Anxiety: Yes Depression: Yes (bipolar) Heart Rhythm Problems: No Cancer: No Cardiovascular Problems: Yes (HTN) High Cholesterol: Yes Chest Pain: No Congestive Heart Failure: No COPD: No Cerebrovascular Accident: No Diabetes: Yes (TYPE 2) Patient Takes Glucophage: No Diminished Hearing: No Endocrine: No Gastrointestinal Disorders: Yes GERD: No Genitourinary: No Headaches: No Hepatitis: No Hiatal Hernia: Yes (REPAIRED WITH SURGERY) Hypertension: Yes Immune Disorder: No Implanted Vascular Access Dvce: No Kidney Stones: No Medical other: Yes (arthritis back and neck problems) Musculoskeletal: Yes Neurologic: No Psychiatric: Yes (BIPOLAR DISORDER) Reproductive: No Respiratory: No Immunizations Current: Yes Migraines: No Renal Failure: No Seizures: No Sleep Apnea: Yes (SLIGHT) Thyroid Disease: Yes (hypo) Ulcer: No Tetanus Vaccination: < 5 Years PNEUMOCCOCAL Vaccine (Year): 1 ?: Not Menopausal: Yes Past Surgical History Abdominal Surgery: Yes (GASTRIC BANDING, EXP LAP, REPAIR HIATAL HERNIA) Appendectomy: Yes Cardiac Surgery: No Cholecystectomy: Yes Ear Surgery: No Endocrine Surgery: No Eye Surgery: No Genitourinary Surgery: No Gynecologic Surgery: Yes (HYSTERECTOMY) Hysterectomy: Yes (COMPLETE) Oral Surgery: No Thoracic Surgery: No Other Surgery: Yes (INTRATHECIAL PAIN PUMP TO RT ABD AREA) Social History Alcohol Use: No Tobacco Use: No (QUIT 30+YRS AGO SMOKED CIGS FOR 2 YRS ) Substance Use: No Allergies-Medications (Allergen,Severity, Reaction): Coded Allergies: Sulfa (Sulfonamide Antibiotics) (Unverified Allergy, Severe, 03/17/18) n/v codeine (Unverified Allergy, Severe, Psychosis, 03/17/18) erythromycin base (Unverified Allergy, Severe, VOMITING/RASH, 03/17/18) morphine (Unverified Allergy, Intermediate, RASH, 03/17/18) PT STATES DOES NOT HAVE AN ALLERGY TO MORPHINE, HAS TAKEN BEFORE, "MAKES HER ITCH", BUT HAS HAD MULTIPLE TIMES BEFORE WITH NO ALLERGY Reported Meds & Prescriptions Reported Meds & Active Scripts Active Reported [Pain pump-dilaudid ] Percocet (Oxycodone-Acetaminophen) 10-325 mg Tab 1 Tab PO Q4H PRN Dilaudid (Hydromorphone HCl) 2 Mg Tab Unknown Dose PO Q4H PRN Tizanidine (Tizanidine HCl) 4 Mg Tab 4 Mg PO HS Alprazolam 0.5 Mg Tab 0.5 Mg PO HS Lamotrigine 25 Mg Tab 50 Mg PO DAILY Escitalopram (Escitalopram Oxalate) 20 Mg Tab 20 Mg PO DAILY Nortriptyline (Nortriptyline HCl) 75 Mg Cap 160 Mg PO HS Diltiazem ER 12 HR (Diltiazem HCl) 120 Mg Caper 120 Mg PO BID Omeprazole 20 Mg Tab 20 Mg PO DAILY Levothyroxine (Levothyroxine Sodium) 112 Mcg Tab 112 Mcg PO DAILY Gabapentin 800 Mg Tab 800 Mg PO BID Review of Systems General / Constitutional: No: Fever Eyes: No: Visual changes HENT: No: Headaches Cardiovascular: No: Chest Pain or Discomfort Respiratory: Positive: Shortness of Breath Gastrointestinal: No: Abdominal Pain Genitourinary: No: Dysuria Musculoskeletal: No: Pain Skin: No Rash Neurologic: No: Weakness Psychiatric: No: Depression Endocrine: No: Polydipsia Hematologic/Lymphatic: No: Easy Bruising Physical Exam Narrative GENERAL: Well-nourished, well-developed patient. SKIN: Focused skin assessment warm/dry. HEAD: Normocephalic. EYES: No scleral icterus. No injection or drainage. NECK: Supple, trachea midline. No JVD or lymphadenopathy. CARDIOVASCULAR: Regular rate and rhythm without murmurs, gallops, or rubs. RESPIRATORY: Breath sounds equal bilaterally. No accessory muscle use. GASTROINTESTINAL: Abdomen soft, nondistended. Nontender on palpation of the abdomen. MUSCULOSKELETAL: No cyanosis, or edema. BACK: Nontender without obvious deformity. No CVA tenderness. Neurologic exam normal. Data Data Last Documented VS Vital Signs Date Time Temp Pulse Resp B/P (MAP) Pulse Ox O2 Delivery O2 Flow Rate FiO2 03/17/18 20:32 62 18 178/82 (114) 97 Room Air 03/17/18 18:45 97.6 Orders Orders Electrocardiogram (03/17/18 19:34) Complete Blood Count With Diff (03/17/18 19:34) Basic Metabolic Panel (Bmp) (03/17/18 19:34) B-Type Natriuretic Peptide (03/17/18 19:34) Thyroid Stimulating Hormone (03/17/18 19:34) Chest, Single Ap (03/17/18 19:34) Iv Access Insert/Monitor (03/17/18 19:34) Ecg Monitoring (03/17/18 19:34) Oximetry (03/17/18 19:34) Creatine Kinase (Cpk) (03/17/18 19:34) Troponin I (03/17/18 19:34) Hydralazine Inj (Apresoline Inj) (03/17/18 19:45) Labs Laboratory Tests Test 03/17/18 19:52 White Blood Count 7.3 TH/MM3 Red Blood Count 4.95 MIL/MM3 Hemoglobin 10.7 GM/DL Hematocrit 34.9 % Mean Corpuscular Volume 70.5 FL Mean Corpuscular Hemoglobin 21.5 PG Mean Corpuscular Hemoglobin Concent 30.5 % Red Cell Distribution Width 14.6 % Platelet Count 240 TH/MM3 Mean Platelet Volume 9.5 FL Neutrophils (%) (Auto) 63.9 % Lymphocytes (%) (Auto) 25.3 % Monocytes (%) (Auto) 7.2 % Eosinophils (%) (Auto) 3.1 % Basophils (%) (Auto) 0.5 % Neutrophils # (Auto) 4.8 TH/MM3 Lymphocytes # (Auto) 1.8 TH/MM3 Monocytes # (Auto) 0.5 TH/MM3 Eosinophils # (Auto) 0.2 TH/MM3 Basophils # (Auto) 0.0 TH/MM3 CBC Comment AUTO DIFF Platelet Estimate NORMAL Platelet Morphology Comment NORMAL Blood Urea Nitrogen 12 MG/DL Creatinine 0.75 MG/DL Random Glucose 123 MG/DL Calcium Level 9.3 MG/DL Sodium Level 140 MEQ/L Potassium Level 3.6 MEQ/L Chloride Level 104 MEQ/L Carbon Dioxide Level 29.0 MEQ/L Anion Gap 7 MEQ/L Estimat Glomerular Filtration Rate 76 ML/MIN Total Creatine Kinase 130 U/L Troponin I LESS THAN 0.02 NG/ML B-Type Natriuretic Peptide 182 PG/ML Thyroid Stimulating Hormone 3rd Gen 0.364 uIU/ML [facility] Medical Decision Making Medical Screen Exam Complete: Yes Emergency Medical Condition: Yes Interpretation(s) 05 10 PM. EKG shows atrial bradycardia with short CO interval. Rate 59. Nonspecific ST-T wave change. 2040 PM. Last Impressions Chest X-Ray 03/17/181933 Signed Impressions: Service Date/Time: Saturday, March 17, 2018 19:59 - CONCLUSION: No acute disease. Cardiomegaly. Koko Rose MD 2040 PM. CBC WBC 7.3. Hemoglobin 10.7 hematocrit 34.9. MCV 70. GFR 76. Cardiac enzymes are normal. BNP 182. Differential Diagnosis Differential diagnosis including uncontrolled hypertension, hypertensive urgency , hypertensive crisis, dyspnea, angina, NV, PE, pneumothorax. Narrative Course 73-year-old female with shortness of breath and elevated blood pressure. History hypertension. Patient is on clonidine. Patient's blood pressures elevated in the ED. Hydralazine 10 mg IV given. 2044 PM. Blood pressure came under more control. Diagnosis Primary Impression: Uncontrolled hypertension Additional Impression: Dyspnea Qualified Codes: R06.02 - Shortness of breath Patient Instructions: General Instructions Additional Instructions: Lisinopril and amlodipine as directed. Advised patient to wean off clonidine as blood pressure improving. Follow up with personal physician. Return if worse. Med/Other Pt SpecificInfo: Prescription(s) given Scripts Amlodipine (Amlodipine) 5 Mg Tab 5 MG PO HS for Blood Pressure Management, #30 TAB 0 Refills Prov: Chris Ragsdale MD 03/17/18 Lisinopril (Lisinopril) 20 Mg Tab 20 MG PO DAILY, #30 TAB 0 Refills Prov: Chris Ragsdale MD 03/17/18 Disposition: 01 DISCHARGE HOME Condition: Stable Chris Ragsdale MD March 17, 2018 20:11
[2018-03-17 20:15] LABS: CHLORIDE 104 MEQ/L (98-107); SODIUM (NA) 140 MEQ/L (136-145)
--- NOTE | 2018-03-17 20:15 | RADRPT ---
EXAM DATE/TIME: 03/17/2018 19:59 [facility] COMPARISON: CHEST SINGLE AP, February 04, 2017, 16:33. INDICATIONS : Chest discomfort, increased blood pressure starting today MEDICAL HISTORY : Hypertension. SURGICAL HISTORY : None. ENCOUNTER: Initial ACUITY: 1 day PAIN SCORE: 0/10 LOCATION: Bilateral chest FINDINGS: A single view of the chest demonstrates the lungs to be symmetrically aerated without evidence of mas s, infiltrate or effusion. Cardiomegaly. The cardiomediastinal contours are unremarkable. Osseous st ructures are intact. CONCLUSION: No acute disease. Cardiomegaly. Koko Rose MD on March 17, 2018 at 20:13 Board Certified Radiologist. This report was verified electronically.
[2018-03-17 20:17] LABS: CALCIUM 9.3 MG/DL (8.5-10.1)
[2018-03-17 20:18] LABS: BLOOD UREA NITROGEN 12 MG/DL (7-18); GLUCOSE,RANDOM 123 MG/DL (74-106)
[2018-03-17 20:21] LABS: CREATININE 0.75 MG/DL (0.50-1.00); GLOMERULAR FILTRATION RATE 76 ML/MIN (>89)
[2018-03-17 20:26] LABS: TROPONIN I LESS THAN 0.02 NG/ML (0.02-0.05)
[2018-03-17 20:32] VITALS: BP 178/82; PULSE 62; RESP 18; O2SAT 97
[2018-03-17] MEDS ORDERED: LISI-515 PO (21:00)
[2018-03-17] MEDS ORDERED: AMLO5TAB2 PO (21:00)
[2018-03-17 21:19] VITALS: BP 165/85; TEMP 98.2
--- NOTE | 2018-03-18 15:03 | EKG ---
Date Performed: 03/17/2018 Time Performed: 19:52:53 PTAGE: 73 years EKG: Normal Sinus rhythm MODERATE VOLTAGE CRITERIA FOR LVH, CONSIDER NORMAL VARIANT ABNORMAL RHYTHM ECG PREVIOUS TRACING : 02/04/2017 16.05 Since the prior tracing, the frequent PVCs and QT prolongat ion have resolved. The previously noted ST segment changes associated with QT prolongation have resol yusuf. DOCTOR: No Kat Interpretating Date/Time 03/18/2018 15:02:43
== END 2018-03-17 21:21 | disposition home or self-care (01) ==
LOC: PHED 18:41
DX: I10 Essential (primary) hypertension (principal); R06.00 Dyspnea, unspecified; R94.31 Abnormal electrocardiogram [ECG] [EKG]; E11.9 Type 2 diabetes mellitus without complications; E03.9 Hypothyroidism, unspecified; E78.5 Hyperlipidemia, unspecified; F31.9 Bipolar disorder, unspecified; G89.29 Other chronic pain; F41.9 Anxiety disorder, unspecified
CPT/HCPCS: 71045; 80048; 82550; 83880; 84443; 84484; 85025; 93005; 96374; 99285; J0360

== ENCOUNTER 2018-03-20 17:04 | Emergency (ER) | payer OTHER ==
[~2018-03-20] VITALS: Ht 157.5 cm; Wt 98.0 kg
[~2018-03-20 17:04] MED LIST changes: +AMLO5TAB2 PO; +LISI-515 PO; -METO25TA3 PO; +PAIN PUMP DILAUDID; -TRIA1TAB5 PO
[2018-03-20 17:08] VITALS: BP 195/94; PULSE 84; RESP 18; TEMP 98.5; O2SAT 98
[2018-03-20] MEDS ORDERED: CLON0.2T PO (17:21)
[2018-03-20] MEDS ORDERED: cloNIDine HCL 0.2 MG TAB PO ONE (18:00)
--- NOTE | 2018-03-20 18:20 | PD ---
HPI Chief Complaint: Hypertension Time Seen by Provider: 17:54 Travel History International Travel<30 days: No Contact w/Intl Traveler<30days: No Traveled to known affect area: No History of Present Illness HPI 73-year-old female complains of elevated blood pressure. Patient was evaluated ports several excellent blood pressures with occasional elevation into the 190s over 100. She has not followed with her primary care provider. Patient denies any headache. Patient denies any chest pain. Patient denies abdominal pain. Patient denies any focal weakness or numbness of extremity. Patient has history of type 2 diabetes, hypothyroidism, hyperlipidemia, bipolar disorder. Patient has history of chronic pain and on Dilaudid pain pump. Reports the arrival of her grandson and new . States they are planning on taking them to dinner and here she is in the ER. PFSH Past Medical History Hx Anticoagulant Therapy: Yes (BABY ASA DAILY) Arthritis: Yes Asthma: No Autoimmune Disease: No Anxiety: Yes Depression: Yes (bipolar) Heart Rhythm Problems: No Cancer: No Cardiovascular Problems: Yes High Cholesterol: Yes Chest Pain: No Congestive Heart Failure: No COPD: No Cerebrovascular Accident: No Diabetes: Yes Patient Takes Glucophage: Yes Diminished Hearing: No Endocrine: No Gastrointestinal Disorders: Yes GERD: No Genitourinary: No Headaches: No Hepatitis: No Hiatal Hernia: Yes (REPAIRED WITH SURGERY) Hypertension: Yes Immune Disorder: No Implanted Vascular Access Dvce: No Kidney Stones: No Medical other: Yes (arthritis back and neck problems) Musculoskeletal: Yes Neurologic: No Psychiatric: Yes (BIPOLAR DISORDER) Reproductive: No Respiratory: No Immunizations Current: Yes Migraines: No Renal Failure: No Seizures: No Sleep Apnea: Yes (SLIGHT) Thyroid Disease: Yes (hypo) Ulcer: No Tetanus Vaccination: > 5 Years Influenza Vaccination: Yes PNEUMOCCOCAL Vaccine (Year): 1 ?: Not Menopausal: Yes Past Surgical History Abdominal Surgery: Yes (GASTRIC BANDING, EXP LAP, REPAIR HIATAL HERNIA) Appendectomy: Yes Cardiac Surgery: No Cholecystectomy: Yes Ear Surgery: No Endocrine Surgery: No Eye Surgery: No Genitourinary Surgery: No Gynecologic Surgery: Yes (HYSTERECTOMY) Hysterectomy: Yes (COMPLETE) Oral Surgery: No Thoracic Surgery: No Other Surgery: Yes (INTRATHECIAL PAIN PUMP TO RT ABD AREA) Social History Alcohol Use: No Tobacco Use: No (QUIT 30+YRS AGO SMOKED CIGS FOR 2 YRS ) Substance Use: No Allergies-Medications (Allergen,Severity, Reaction): Coded Allergies: Sulfa (Sulfonamide Antibiotics) (Unverified Allergy, Severe, 03/20/18) n/v codeine (Unverified Allergy, Severe, Psychosis, 03/20/18) erythromycin base (Unverified Allergy, Severe, VOMITING/RASH, 03/20/18) morphine (Unverified Allergy, Intermediate, RASH, 03/20/18) PT STATES DOES NOT HAVE AN ALLERGY TO MORPHINE, HAS TAKEN BEFORE, "MAKES HER ITCH", BUT HAS HAD MULTIPLE TIMES BEFORE WITH NO ALLERGY Reported Meds & Prescriptions Reported Meds & Active Scripts Active Amlodipine (Amlodipine Besylate) 5 Mg Tab 5 Mg PO HS Lisinopril 20 Mg Tab 20 Mg PO DAILY Reported Clonidine (Clonidine HCl) 0.2 Mg Tab 0.2 Mg PO BID [Pain pump-dilaudid ] Percocet (Oxycodone-Acetaminophen) 10-325 mg Tab 1 Tab PO Q4H PRN Dilaudid (Hydromorphone HCl) 2 Mg Tab Unknown Dose PO Q4H PRN Tizanidine (Tizanidine HCl) 4 Mg Tab 4 Mg PO HS Alprazolam 0.5 Mg Tab 0.5 Mg PO HS Lamotrigine 25 Mg Tab 50 Mg PO DAILY Escitalopram (Escitalopram Oxalate) 20 Mg Tab 20 Mg PO DAILY Nortriptyline (Nortriptyline HCl) 75 Mg Cap 160 Mg PO HS Diltiazem ER 12 HR (Diltiazem HCl) 120 Mg Caper 120 Mg PO BID Omeprazole 20 Mg Tab 20 Mg PO DAILY Levothyroxine (Levothyroxine Sodium) 112 Mcg Tab 112 Mcg PO DAILY Gabapentin 800 Mg Tab 800 Mg PO BID Physical Exam Narrative GENERAL: Well-nourished, well-developed patient. SKIN: Focused skin assessment warm/dry. HEAD: Normocephalic. EYES: No scleral icterus. No injection or drainage. NECK: Supple, trachea midline. No JVD or lymphadenopathy. CARDIOVASCULAR: Regular rate and rhythm without murmurs, gallops, or rubs. RESPIRATORY: Breath sounds equal bilaterally. No accessory muscle use. GASTROINTESTINAL: Abdomen soft, non-tender, nondistended. MUSCULOSKELETAL: No cyanosis, or edema. BACK: Nontender without obvious deformity. No CVA tenderness. Data Data Last Documented VS Vital Signs Date Time Temp Pulse Resp B/P (MAP) Pulse Ox O2 Delivery O2 Flow Rate FiO2 03/20/18 20:41 72 16 102/58 (73) 94 Room Air 03/20/18 17:08 98.5 Orders Orders Clonidine (Catapres) (03/20/18 18:00) Urinalysis - C+S If Indicated (03/20/18 18:49) Hydralazine Inj (Apresoline Inj) (03/20/18 19:00) Labs Laboratory Tests Test 03/20/18 19:09 Urine Color YELLOW Urine Turbidity CLEAR Urine pH 7.5 Urine Specific [place] 1.010 Urine Protein NEG mg/dL Urine Glucose (UA) NEG mg/dL Urine Ketones NEG mg/dL Urine Occult Blood NEG Urine Nitrite NEG Urine Bilirubin NEG Urine Urobilinogen 0.2 MG/DL Urine Leukocyte Esterase TRACE Urine RBC 0-2 /hpf Urine WBC 3-5 /hpf Urine Squamous Epithelial Cells 0-5 /hpf Urine Bacteria NONE /hpf Microscopic Urinalysis Comment CULT NOT INDICATED MDM Medical Decision Making Medical Screen Exam Complete: Yes Emergency Medical Condition: Yes Differential Diagnosis Uncontrolled hypertension, renal artery stenosis, malingering Narrative Course Assessment and plan discussed with patient and granddaughter in law at bedside. Patient received clonidine with little benefit. Received hydralazine was significant improvement. Diagnosis Primary Impression: Uncontrolled hypertension Patient Instructions: General Instructions Additional Instructions: Encouraged to continue lisinopril and amlodipine as directed. Encouraged to take 1 clonidine at 12:00 for the next 3 days to avoid rebound hypertension. Hydralazine 3 times daily as needed for systolic blood pressure over 180. Encouraged keep a blood pressure log for evaluation of follow-up. Follow-up with PCP. Return to the emergency room with any onset of new symptoms. Med/Other Pt SpecificInfo: Prescription(s) given Scripts Hydralazine HCl (Hydralazine HCl) 25 Mg Tablet 25 MG PO TID Y for SBP> OR = 180, DBP> OR = 100, #30 TAB 0 Refills Prov: Jamie Post MD 03/20/18 Disposition: 01 DISCHARGE HOME Condition: Good Jamie Post MD March 20, 2018 18:20
[2018-03-20 18:36] VITALS: BP 207/97; PULSE 70; RESP 18; O2SAT 96
[2018-03-20 18:48] VITALS: BP 208/77
[2018-03-20] MEDS ORDERED: hydrALAZINE HCL 20 MG/ML VIAL IV PUSH ONE (19:00)
[2018-03-20 19:21] LABS: BILIRUBIN, URINE NEG (NEG); BLOOD, URINE NEG (NEG); GLUCOSE,URINE NEG (NEG); KETONE, URINE NEG (NEG); NITRITE,URINE NEG (NEG); PH, URINE 7.5 (5.0-8.5); URINE COLOR YELLOW (YELLW/STRAW); URINE LEUKOCYTE ESTERASE TRACE (NEG)
[2018-03-20 19:27] LABS: RBC, URINE 0-2 /hpf (0-3); SQUAMOUS EPITHELIAL CELL URINE 0-5 /hpf (0-5)
[2018-03-20 20:00] VITALS: BP 199/73; PULSE 86; RESP 16; O2SAT 95
[2018-03-20 20:41] VITALS: BP 102/58; PULSE 72; RESP 16; O2SAT 94
[2018-03-20] MEDS ORDERED: HYDR-3799 PO (20:50)
[2018-03-20] MEDS ORDERED: DIFL150T PO (21:08)
[2018-03-20 21:31] VITALS: BP 121/55
== END 2018-03-20 21:32 | disposition home or self-care (01) ==
LOC: PHED 17:04
DX: I10 Essential (primary) hypertension (principal); E11.9 Type 2 diabetes mellitus without complications; E03.9 Hypothyroidism, unspecified; E78.5 Hyperlipidemia, unspecified; F31.9 Bipolar disorder, unspecified; G89.29 Other chronic pain; F41.9 Anxiety disorder, unspecified; E78.00 Pure hypercholesterolemia, unspecified; Z87.891 Personal history of nicotine dependence
CPT/HCPCS: 81001; 96374; 99284; J0360